=== PATIENT | female | born 1980 | race Caucasian/White ===

== ENCOUNTER 2017-10-03 18:44 | Emergency (ER) | END 2017-10-03 20:45 | disposition home or self-care (01) ==

== ENCOUNTER 2018-10-07 15:16 | Emergency (ER) | payer MEDICAID ==
[~2018-10-07] VITALS: Ht 157.5 cm; Wt 64.2 kg
[~2018-10-07 15:16] MED LIST: CEPH-443 PO; FOLI-49 PO; IRON18TA PO; PREN1TAB49
[2018-10-07 15:24] VITALS: Ht 157.5 cm; Wt 64.2 kg
--- NOTE | 2018-10-07 17:15 | ERD ---
ER Documentation Chief Complaint Chief Complaint c/o dizziness and ear pain HPI 38-year-old female, previously healthy, presents to the emergency department, complaining of dizziness described as a spinning sensation with velazquez dden changes in position. The patient denies headaches, no fever, no distal weakness, numbness or tingling. The symptoms started 4 days ago. No history of previous episodes. No medications taken at this time. ROS All systems reviewed and are negative except as per history of present illness. Medications Home Meds Active Scripts Meclizine Hcl* (Antivert*) 12.5 Mg Tab, 12.5 MG PO Q6H PRN for DIZZINESS, #20 TAB Prov:LAKISHA SANZ MD 10/07/18 Sulfamethoxazole/Trimethoprim* (Bactrim Ds* Tablet) 1 Each Tablet, 1 TAB PO BID, #10 TAB Prov:LAKISHA SANZ MD 10/07/18 Cephalexin* (Keflex*) 500 Mg Capsule, 500 MG PO QID for 7 Days, CAP Prov:REBEKAH HAMILTON PA-C 10/03/17 Reported Medications Iron (Iron) 18 Mg Tablet, 18 MG PO DAILY, TAB 05/07/16 Folic Acid* (Folic Acid*) 1 Mg Tablet, 1 MG PO DAILY, TAB 05/07/16 Vits W-Ca,Fe,Fa(<1MG) () 1 Tab Tablet 06/09/10 Allergies Allergies: Coded Allergies: No Known Allergy (Verified , 10/03/17) PMhx/Soc Medical and Surgical Hx: pt denies Medical Hx, pt denies Surgical Hx Hx Alcohol Use: No Hx Substance Use: No Hx Tobacco Use: No FmHx Family History: diabetes, coronary disease Physical Exam Vitals Vital Signs Date Temp Pulse Resp B/P (MAP) Pulse Ox O2 O2 Flow FiO2 Time Delivery Rate 10/07/18 99.8 77 20 115/79 98 15:24 (91) Physical Exam Patient is in no acute distress, vital signs stable. Alert and fully oriented. HEENT: PERRLA, EOMI, Sclera and conjunctiva appear normal, Canals clear, tympanic membranes WNL. THROAT: Normal oropharynx. NECK: Supple, No lymphadenopathy. Full ROM without pain or tenderness. HEART: RRR, no rubs, murmurs, clicks or gallops. LUNGS: Clear to auscultation. ABDOMEN: Soft, non-tender without masses or hepatosplenomegaly. EXTREMITIES: No edema bilaterally. BACK: Full ROM, no deformity, normal back exam NEURO: Cranial nerves grossly intact, no motor or sensory deficit. Mild horizontal nystagmus while the patient was looking straight ahead with mildly abnormal head impulse test. Result Diagram: 10/07/18 1740 10/07/18 1740 Results 24 hrs Laboratory Tests Test 10/07/18 17:40 10/07/18 17:41 White Blood Count 9.2 10^3/ul Red Blood Count 4.15 10^6/ul Hemoglobin 12.9 g/dl Hematocrit 38.3 % Mean Corpuscular Volume 92.3 fl Mean Corpuscular Hemoglobin 31.1 pg Mean Corpuscular Hemoglobin Concent 33.7 g/dl Red Cell Distribution Width 11.7 % Platelet Count 257 10^3/UL Mean Platelet Volume 9.1 fl Immature Granulocytes % 0.300 % Neutrophils % 60.6 % Lymphocytes % 31.8 % Monocytes % 5.2 % Eosinophils % 1.8 % Basophils % 0.3 % Nucleated Red Blood Cells % 0.0 /100WBC Immature Granulocytes # 0.030 10^3/ul Neutrophils # 5.6 10^3/ul Lymphocytes # 2.9 10^3/ul Monocytes # 0.5 10^3/ul Eosinophils # 0.2 10^3/ul Basophils # 0.0 10^3/ul Nucleated Red Blood Cells # 0.0 10^3/ul Sodium Level 140 mmol/L Potassium Level 4.0 mmol/L Chloride Level 105 mmol/L Carbon Dioxide Level 27 mmol/L Anion Gap 8 Blood Urea Nitrogen 11 mg/dl Creatinine 0.96 mg/dl Est Glomerular Filtrat Rate mL/min > 60 mL/min Glucose Level 96 mg/dl Calcium Level 9.3 mg/dl Urine Color STRAW Urine Clarity SLIGHTLY CLOUDY Urine pH 6.0 Urine Specific [place] 1.004 Urine Ketones NEGATIVE mg/dL Urine Nitrite NEGATIVE mg/dL Urine Bilirubin NEGATIVE mg/dL Urine Urobilinogen NEGATIVE mg/dL Urine Leukocyte Esterase 2+ Darin/ul Urine Microscopic RBC 5 /HPF Urine Microscopic WBC 4 /HPF Urine Squamous Epithelial Cells FEW /HPF Urine Bacteria FEW /HPF Urine Hemoglobin 2+ mg/dL Urine Glucose NEGATIVE mg/dL Urine Total Protein NEGATIVE mg/dl Urine Test NEGATIVE EKG read by me: Rate/Rhythm: Regular rate and rhythm at a rate of 64 Intervals: Normal No acute ST changes. No T wave inversion Impression: No evidence of acute ischemia or arrhythmia Procedures/MDM Vital signs stable, neurovascular exam revealed horizontal nystagmus while the patient was looking straight ahead with mildly abnormal head impulse test. Differential diagnosis include but not limited to dehydration, cardiac arrhythmia, , Mnire's disease, vestibular neuronitis, migraine, vertigo, side effects of the medications, hypoglycemia. Less likely but is still a possibility, intracranial hemorrhage, ischemic stroke, [employer] neoplasm. Pertinent Data: 12 Lead ECG: Sinus rhythm, no ST changes, normal T wave, normal intervals Labs: CBC: normal, BMP: normal kidney function, normal electrolytes. Glucose: normal Urine : Negative. Physical examination and clinical presentation consistent most likely with urinary tract infection and positional vertigo During the ED course the patient remained stable, no new complaints. Results and clinical impression discussed with patient who agrees with management. The patient is stable to be treated outpatient and will be discharged home with instructions to follow up with the primary care provider in the next 48h. If symptoms persist, worsen or new symptoms develop, then patient should return to the ED immediately. Instructions explained and given directly by me to the patient with ackn owledgment and demonstrated understanding. Disclaimer: Inadvertent spelling and grammatical errors are likely due to EHR/dictation software use and do not reflect on the overall quality of patient care. Also, please note that the electronic time recorded on this note does not necessarily reflect the actual time of the patient encounter. Departure Diagnosis: Primary Impression: UTI (urinary tract infection) Additional Impression: Positional vertigo Condition: Stable Additional Instructions: Muchas mary anne por [facility] para velazquez servicio. Esperamos que en velazquez visita a la ray de emergencia velazquez problema medico haya sido solucionado y que se sienta mucho mejor. Para estar seguros que velazquez mejoria sigue en proceso, le pedimos el favor de hacer magdiel magali de seguimiento medico con velazquez doctor primario en los proximos 2-4 raygoza. Lleve con usted estos documentos y las medicinas recetadas. Si john sintomas empeoran, NO SE ESPERE, por favor regrese a ray de emergencia INMEDIATAMENTE. En fannie que usted no tenga un mdico de atencin primaria: Llame al mdico o clnica comunitaria de referencia que aparece abajo riya las horas de consultorio para hacer magdiel magali para que le vean. CLINICAS: [facility] [phone] [id number] [facility] [phone] [id number] [facility] [phone] [facility] [phone] [id number] [facility] [phone] [id number] [facility]. [phone] LAKISHA COLLINS MD Oct 07, 2018 17:15
[2018-10-07] MEDS ORDERED: SULF1TAB31 PO (18:53)
[2018-10-07] MEDS ORDERED: MECL12.574 PO (18:53)
[2018-10-07 18:59] VITALS: BP 116/72; PULSE 69; RESP 16
== END 2018-10-07 19:00 | disposition home or self-care (01) ==
LOC: FTE 15:16
DX: N39.0 Urinary tract infection, site not specified (principal)
CPT/HCPCS: 80048; 81001; 84703; 85025; 93005; Z7502